=== PATIENT | female | born 1930 | race Caucasian/White ===

== ENCOUNTER 2017-11-15 15:06 | Emergency (ER) | payer MEDICARE, OTHER ==
[~2017-11-15] VITALS: Ht 165.1 cm; Wt 77.1 kg
[~2017-11-15 15:06] MED LIST: AMLO5TAB2 PEG; HYDR15SO4 PEG; NYST60PO TP
[2017-11-15 16:04] VITALS: BP 141/52
--- NOTE | 2017-11-15 16:39 | PHYS DOC ---
Past Medical History Past Medical History: COPD, Dementia, GERD, Hypertension Additional Past Medical Histor: HEART FAILURE Past Surgical History: Appendectomy, Hysterectomy, Other Additional Past Surgical Histo: NECK,ABD SURG,L ELBOW & LEG ORIF Alcohol Use: None Drug Use: None Adult General Chief Complaint Chief Complaint: OTHER COMPLAINTS HPI HPI Patient is a 87 year old female with history of COPD, hypertension, dementia, who presents with the sounds from the alf, per son stated in this state the alf informed the patient's feeding tube has been draining greenish discharge that was noted today. Sons denies patient having any fever, abdominal pain, nausea or vomiting. They state patient is fed orally. Review of Systems Review of Systems Constitutional: Denies fever or chills [] Eyes: Denies change in visual acuity, redness, or eye pain [] HENT: Denies nasal congestion or sore throat [] Respiratory: Denies cough or shortness of breath [] Cardiovascular: No additional information not addressed in HPI [] GI: Greenish drainage from the feeding tube. Denies abdominal pain, nausea, vomiting, bloody stools or diarrhea [] : Denies dysuria or hematuria [] Musculoskeletal: Denies back pain or joint pain [] Integument: Denies rash or skin lesions [] Neurologic: Denies headache, focal weakness or sensory changes [] All other systems were reviewed and found to be within normal limits, except as documented in this note. Allergies Allergies Allergies Coded Allergies Type Severity Reaction Last Updated Verified No Known Drug Allergies 04/14/17 No Physical Exam Physical Exam Constitutional: Well developed, well nourished, no acute distress, non-toxic appearance. [] HENT: Normocephalic, atraumatic, bilateral external ears normal, oropharynx moist, no oral exudates, nose normal. [] Eyes: PERRLA, EOMI, conjunctiva normal, no discharge. [] Neck: Normal range of motion, no tenderness, supple, no stridor. [] Cardiovascular:Heart rate regular rhythm, no murmur [] Lungs & Thorax: Bilateral breath sounds clear to auscultation [] Abdomen: Left mid abdomen with a feeding tube with no drainage. There is no redness around the feeding tube. No warmth around the feeding tube site. Bowel sounds normal, soft, no tenderness, no masses, no pulsatile masses. [] Skin: Warm, dry, no erythema, no rash. [] Back: No tenderness, no CVA tenderness. [] Extremities: No tenderness, no cyanosis, no clubbing, ROM intact, no edema. [] Neurologic: Alert and oriented X 3, normal motor function, normal sensory function, no focal deficits noted. [] Psychologic: Affect normal, judgement normal, mood normal. [] Current Patient Data Vital Signs Vital Signs Date Time Temp Pulse Resp B/P (MAP) Pulse Ox O2 Delivery O2 Flow Rate FiO2 11/15/17 16:04 98.2 83 18 141/52 (81) 96 Room Air 98.2 EKG EKG [] Radiology/Procedures Radiology/Procedures [] Course & Med Decision Making Course & Med Decision Making Pertinent Labs and Imaging studies reviewed. (See chart for details) This is a 87-year-old female patient presenting to the ED today with the sons from a local alf. Per the son's patient has a feeding tube that had greenish drainage. On physical exam the feeding tube site is dry, there is no drainage, no redness, no signs of infection. 16:36 RN spoke to the alf, they state this sounds wanted a feeding tube removed, the sounds were informed the feeding tube can be removed but it is not an emergent situation. Apparently the sounds decided to bring patient to the ED. We informed them patient has to follow-up with the GI doctor and have the feeding tube removed as an outpatient. Patient was discharged back to the alf. Dragon Disclaimer Dragon Disclaimer This electronic medical record was generated, in whole or in part, using a voice recognition dictation system. Departure Departure Impression: Primary Impression: Uses feeding tube Disposition: 01 HOME, SELF-CARE Condition: STABLE Referrals: BAO MENDOZA MD (PCP) Follow-up with your own doctor as well as the GI doctor if you desire to have the feeding tube removed Patient Instructions: Care of a Feeding Tube, [id number] Additional Instructions: Corina feeding tube was evaluated in the emergency room, there is no signs of infection you would like to have it removed you need to follow-up with the GI doctor as an outpatient. KYLIE FERREIRA APRN Nov 15, 2017 16:39
[2017-11-15] MEDS ORDERED: ACETAMINOPHEN 650 MG/20.3 ML SOLUTION. PO ONE (17:00)
== END 2017-11-15 16:57 | disposition home or self-care (01) ==
LOC: ER 15:06
DX: K94.29 Other complications of gastrostomy (principal); J44.9 Chronic obstructive pulmonary disease, unspecified; K21.9 Gastro-esophageal reflux disease without esophagitis; F03.90 Unspecified dementia, unspecified severity, without behavioral disturbance, psychotic disturbance, mood disturbance, and anxiety; I11.0 Hypertensive heart disease with heart failure; I50.9 Heart failure, unspecified; Z90.89 Acquired absence of other organs; Z90.710 Acquired absence of both cervix and uterus; Z98.890 Other specified postprocedural states; Y83.3 Surgical operation with formation of external stoma as the cause of abnormal reaction of the patient, or of later complication, without mention of misadventure at the time of the procedure; Y82.8 Other medical devices associated with adverse incidents; Y92.89 Other specified places as the place of occurrence of the external cause
CPT/HCPCS: 99284

== ENCOUNTER → 2017-11-27 | Day surgery (SDC) | payer MEDICARE, OTHER ==
[~2017-11-27] MED LIST changes: +HYDR12.53 PO; +IV NORMAL SALINE 1000ML BAG 1,000 ML IV SCH; +IV RINGERS,LACTATED 1000ML 1,000 ML IV SCH; +LIDOCAINE 1% PF 2 ML VIAL. ID PRN; +LIDOCAINE 2% PF Vial for OR 5 ML VIAL. ONE; +LORA10TA3 PO; +MIDAZOLAM HCL/PF 2 MG/2 ML VIAL. IV PRN; +PROPOFOL 20 ML IV ONE; +fentaNYL PF VIAL 100 MCG/2 ML VIAL IV PRN
[2017-11-27 10:51] VITALS: BP 138/68
--- NOTE | 2017-11-28 01:28 | HP ---
ADMIT DATE: 11/27/2017 REASON: Improved oropharyngeal dysphagia. HISTORY OF PRESENT ILLNESS: An 87-year-old female whose past medical history is significant for dementia, CHF, COPD, GERD, hiatal hernia, status post appendectomy, hysterectomy, left forearm cyst removal as well as chronic renal insufficiency is seen with improved oropharyngeal dysphagia. Previous PEG was placed during her hospital stay in April. She has improved since and is eating and drinking and does not need the tube at this time. PAST MEDICAL HISTORY: Dementia, CHF, COPD, GERD, hiatal hernia, chronic renal insufficiency, status post appendectomy, hysterectomy, PEG placement. ALLERGIES: None. MEDICATIONS: Include hydrochlorothiazide 25 mg daily, loratadine daily. SOCIAL HISTORY: Does not drink or smoke. FAMILY HISTORY: Noncontributory. REVIEW OF SYSTEMS: Per records. PHYSICAL EXAMINATION: GENERAL: Reveals a thin female. VITAL SIGNS: Temperature is 97.2, pulse , respiratory rate is 18. HEENT: Reveals normocephalic, atraumatic head. Pupils and extraocular muscles are not tested. Sclerae anicteric. NECK: Supple. LUNGS: Clear. CARDIOVASCULAR: Reveals S1, S2 without S3, S4 or appreciable murmur. ABDOMEN: Reveals soft abdomen, normal bowel sounds without appreciable hepatosplenomegaly with right lower quadrant appendectomy and infraumbilical hysterectomy incisions with a PEG in left upper quadrant. EXTREMITIES: Reveal no cyanosis, clubbing, edema. IMPRESSION: Oropharyngeal dysphagia, improved. We will recommend EGD with PEG removal today. Risks and benefits were discussed. The patient is willing to proceed at this time. HONEY BELLA MD DR: CY/amy JOB#: [id number] / [id number]
== END | disposition home or self-care (01) ==
LOC: SURG 09:18
PROVIDERS: ATTEND Internal Medicine Gastroenterology
DX: Z46.59 Encounter for fitting and adjustment of other gastrointestinal appliance and device (principal); K29.50 Unspecified chronic gastritis without bleeding; F03.90 Unspecified dementia, unspecified severity, without behavioral disturbance, psychotic disturbance, mood disturbance, and anxiety; J44.9 Chronic obstructive pulmonary disease, unspecified; K21.9 Gastro-esophageal reflux disease without esophagitis; I13.0 Hypertensive heart and chronic kidney disease with heart failure and stage 1 through stage 4 chronic kidney disease, or unspecified chronic kidney disease; N18.4 Chronic kidney disease, stage 4 (severe); I50.9 Heart failure, unspecified; Z90.49 Acquired absence of other specified parts of digestive tract; Z90.710 Acquired absence of both cervix and uterus; Z98.890 Other specified postprocedural states; Z79.899 Other long term (current) drug therapy; Z93.1 Gastrostomy status
CPT/HCPCS: 43247; J2001; J2704